=== PATIENT | female | born 1985 | race Caucasian/White ===

== ENCOUNTER 2018-02-24 17:57 | Emergency (ER) | payer OTHER ==
[~2018-02-24] VITALS: Ht 160 cm; Wt 76.1 kg
[~2018-02-24 17:57] MED LIST: CIPRO 250MG TA250 MG PO; LEVAQUIN 250MG250 MG PO; LORTAB 5/500 501 TAB PO; MOTRIN 600600 MG/TAB PO; NO HOME MEDICATIONS; PERCOCET 5/321 UDTAB PO; PRENATAL VITAMI1 TA5 PO
[2018-02-24 18:03] VITALS: BP 116/77; TEMP 97.8
[2018-02-24 19:45] VITALS: PULSE 73
== END 2018-02-24 19:45 | disposition home or self-care (01) ==
LOC: COL.ER 17:57
DX: S61.211A Laceration without foreign body of left index finger without damage to nail, initial encounter (principal); Z23 Encounter for immunization; W26.8XXA Contact with other sharp object(s), not elsewhere classified, initial encounter

== ENCOUNTER 2019-08-06 16:03 | Emergency (ER) | payer SELFPAY ==
[~2019-08-06] VITALS: Ht 160 cm; Wt 71.8 kg
[2019-08-06 16:07] VITALS: BP 122/65
[2019-08-06] MEDS ORDERED: CYMBALTA 60MG60 MG PO (16:23)
[2019-08-06] MEDS ORDERED: PREDNISONE20 MG PO (17:17)
[2019-08-06] MEDS ORDERED: OMNICEF 300MG300 MG PO (17:17)
[2019-08-06 18:04] VITALS: PULSE 102; TEMP 98.4
== END 2019-08-06 18:15 | disposition home or self-care (01) ==
LOC: COL.ER 16:03
DX: J18.1 Lobar pneumonia, unspecified organism (principal); F17.210 Nicotine dependence, cigarettes, uncomplicated; Z98.890 Other specified postprocedural states
CPT/HCPCS: J0696

== ENCOUNTER 2020-07-12 10:40 | Emergency (ER) | payer SELFPAY ==
[~2020-07-12] VITALS: Ht 160 cm; Wt 81.8 kg
[~2020-07-12 10:40] MED LIST changes: +ALBUTEROL0.83 MG/ML IH; +CYMBALTA 60MG60 MG PO; +DESYREL 50MG50 MG PO; +NEB MC; +OMNICEF 300MG300 MG PO; +PREDNISONE20 MG PO
[2020-07-12 10:43] VITALS: BP 156/100; TEMP 97.9
[2020-07-12] MEDS ORDERED: MOBIC 7.5MG7.5 MG PO (12:58)
[2020-07-12 13:48] VITALS: PULSE 80
== END 2020-07-12 13:12 | disposition home or self-care (01) ==
LOC: COL.ER 10:40
DX: M25.561 Pain in right knee (principal); M25.562 Pain in left knee; I10 Essential (primary) hypertension; F41.9 Anxiety disorder, unspecified; F32.9 Major depressive disorder, single episode, unspecified; F17.210 Nicotine dependence, cigarettes, uncomplicated
CPT/HCPCS: J1885